=== PATIENT | male | born 1940 | race Caucasian/White ===

== ENCOUNTER → 2017-01-01 | Outpatient (CLI) | payer OTHER | LOC: BHFA 13:30 | PROVIDERS: ATTEND Internal Medicine Cardiovascular Disease | DX: I25.10 Atherosclerotic heart disease of native coronary artery without angina pectoris (principal); E78.5 Hyperlipidemia, unspecified ==

== ENCOUNTER 2017-02-14 09:10 | Day surgery (SDC) | payer OTHER ==
[2017-02-14] MEDS ORDERED: CHLORHEXIDINE GLUC HIBICLENS 118 ML BTL TP ONE (09:51)
[2017-02-14] MEDS ORDERED: BUPIVACAINE 0.25% 30 ML SDV ONE (09:51)
[2017-02-14] MEDS ORDERED: GABAPENTIN 300 MG CAP PO ONE (09:52)
[2017-02-14] MEDS ORDERED: ACETAMINOPHEN 500 MG TAB PO ONE (09:52)
[2017-02-14] MEDS ORDERED: morphINE SR 15 MG TAB PO ONE (09:52)
[2017-02-14] MEDS ORDERED: BACITRACIN 50,000 UNITS/10 ML SYR IRR ONE (09:52)
[2017-02-14] MEDS ORDERED: LR 1,000 ML IV ONE (09:52)
--- NOTE | 2017-02-14 10:04 | PDHPUP ---
History & Physical Update H&P update statement: This history and physical update is based on an assessment of the patient which was completed after admission or registration (within 24 hours), but prior to the surgery/procedure. H&P update: H&P reviewed & patient examined, no change in patient's condition since H&P completed (Consents signed and site marked. Plan for left sided SI joint fusion. All questions answered.)
[2017-02-14] MEDS ORDERED: MIDAZOLAM 2 MG/2 ML VIAL IVP ONE (10:05)
--- NOTE | 2017-02-14 10:05 | PDANEPAE ---
ANE History of Present Illness SI joint pain Left ANE Past Medical History - Cardiovascular History Hx Hypertension: Yes Hx Arrhythmias: No Hx Chest Pain: No Hx Coronary Artery / Peripheral Vascular Disease: Yes Hx CHF / Valvular Disease: No Hx Palpitations: No - Pulmonary History Hx COPD: No Hx Asthma/Reactive Airway Disease: No Hx Recent Upper Respiratory Infection: No Hx Oxygen in Use at Home: No Hx Sleep Apnea: No Sleep Apnea Screening Result - Last Documented: Negative - Neurologic History Hx Cerebrovascular Accident: No Hx Seizures: No Hx Dementia: No - Endocrine History Hx Diabetes: No - Renal History Hx Renal Disorders: No - Liver History Hx Hepatic Disorders: No - Neurological & Psychiatric Hx Hx Neurological and Psychiatric Disorders: No - Cancer History Hx Cancer: No - Congenital Disorder History Hx Congenital Disorders: No - GI History Hx Gastrointestinal Disorders: No - Chronic Pain History Chronic Pain: No (SI JOINT) - Surgical History Prior Surgeries: BILAT SHOULDER REPLACEMENTS 2007,2009 ANE Review of Systems Review of Systems: - Exercise capacity METS (RN): 5 METS ANE Patient History - Allergies Allergies/Adverse Reactions: No Known Allergies Allergy (Verified 02/12/17 16:59) - NPO status NPO Since - Liquids (Date): 02/14/17 NPO Since - Liquids (Time): 08:30 NPO Since - Solids (Date): 02/13/17 NPO Since - Solids (Time): 20:30 - Smoking Hx Smoking Status: Never smoked - Family Anes Hx Family Hx Anesthesia Complications: NONE ANE Labs/Vital Signs - Vital Signs Blood Pressure: 152/90 Heart Rate: 74 Respiratory Rate: 14 Height: 175.26 cm Weight: 88.451 kg ANE Physical Exam - Airway Neck exam: FROM Mallampati Score: Class 1 Mouth exam: normal dental/mouth exam - Pulmonary Pulmonary: no respiratory distress - Cardiovascular Cardiovascular: regular rate and rhythym - ASA Status ASA Status: III ANE Anesthesia Plan Anesthesia Plan: general endotracheal anesthesia
[2017-02-14] MEDS ORDERED: CEFAZOLIN 2 GM/DEXTROSE/100 ML BAG IV ONE (10:07)
[2017-02-14] MEDS ORDERED: DEXAMETHASONE 4 MG/ML VIAL ONE (10:08)
[2017-02-14] MEDS ORDERED: MIDAZOLAM 2 MG/2 ML VIAL ONE (10:08)
[2017-02-14] MEDS ORDERED: ROCURONIUM 50 MG/5 ML VIAL ONE (10:08)
[2017-02-14] MEDS ORDERED: ONDANSETRON 4 MG/2 ML VIAL ONE (10:08)
[2017-02-14] MEDS ORDERED: LIDOCAINE 2% 5 ML SDV ONE (10:08)
[2017-02-14] MEDS ORDERED: PROPOFOL 200 MG/20 ML VIAL ONE (10:08)
[2017-02-14] MEDS ORDERED: fentaNYL 100 MCG/2 ML INJ ONE ×3 (10:08→10:10)
[2017-02-14] MEDS ORDERED: SURGIFLO MATRIX KIT WITH THROMBIN TP ONE (10:38)
[2017-02-14] MEDS ORDERED: PHENYLEPHRINE HCL 100 MCG/ML SYR ONE (10:43)
[2017-02-14] MEDS ORDERED: epHEDrine SULFATE 10 MG/ML SYR ONE ×2 (10:48)
[2017-02-14] MEDS ORDERED: SUGAMMADEX SODIUM 200 MG/2 ML VIAL IVP ONE (11:16)
[2017-02-14] MEDS ORDERED: fentaNYL 100 MCG/2 ML INJ IVP PRN (11:32)
[2017-02-14] MEDS ORDERED: PROMETHAZINE HCL 25 MG/ML INJ IVP PRN (11:32)
[2017-02-14] MEDS ORDERED: HYDROmorphONE/DILAUDID 1 MG/ML INJ IVP PRN (11:32)
[2017-02-14] MEDS ORDERED: NALOXONE HCL 0.4 MG/ML INJ IVP PRN (11:32)
[2017-02-14] MEDS ORDERED: ONDANSETRON 4 MG/2 ML VIAL IVP PRN (11:32)
[2017-02-14] MEDS ORDERED: ALBUTEROL 3 ML DEYVIAL IH PRN (11:32)
[2017-02-14] MEDS ORDERED: ceFAZolin 2 GM/DEXTROSE 100 ML IV ONE (11:49)
--- NOTE | 2017-02-14 11:49 | POSTANESTH ---
Post Anesthetic Evaluation Cardiovascular Status: Normal, Stable Respiratory Status: Normal, Stable Level of Consciousness/Mental Status: Can Participate in Eval Pain Control: Adequate, Prn Tx Ordered Nausea/Vomiting Control: Adequate, Prn Tx Ordered Complications Possibly Related to Anesthesia: None Noted
--- NOTE | 2017-02-14 12:09 | POSTOPPROG ---
Post Op Note Date of Operation: 02/14/17 Surgeon: José Luis Begum Solidworks Drafter: Alvina Naik PA-C Anesthesiologist: Zack Anesthesia: GET(General Endotracheal) Pre-op Diagnosis: left sacroillitis Post-op Diagnosis: same Indication: left SI joint pain and sacroillitis Procedure: left SI joint fusion Findings: Please see dictation Inf/Abcess present in the surg proc area at time of surgery?: No Depth: Organ Space EBL: Minimal Complications: none Specimen(s): none PA Addendum - Addendum .: S: Pt in PACU, denies pain O: AAOx3 NAD VSS MAEx4 Motor 5/5 BUE/BLE left and right buttock incisions cdi dressing in place A: 76 yo M s/p left SI joint fusion P: Pain management advance diet and activity as tolerated DC to home Follow up in 2-3 weeks Call NS with any questions D/w Dr Begum
[2017-02-14 12:52] VITALS: TEMP 97.7
[2017-02-14 13:27] VITALS: BP 129/72; PULSE 68; RESP 13; O2SAT 95
--- NOTE | 2017-02-14 16:46 | GOP ---
[f rep st] OPERATIVE REPORT DATE OF OPERATION: 02/14/2017 SURGEON: José Luis Begum MD SUPPLY CHAIN PROGRAM MANAGER: Khadijah Naik PA-C. ANESTHESIA: General. PREOPERATIVE DIAGNOSIS: 1. Left-sided sacroiliitis. 2. Treatment refractory to nonoperative intervention. POSTOPERATIVE DIAGNOSIS: 1. Left-sided sacroiliitis. 2. Treatment refractory to nonoperative intervention. PROCEDURE PERFORMED: 1. Minimally invasive left-sided sacroiliac joint fusion with 2 Medtronic Ola fusion devices filled with morselized allograft crossing the left SI joint. 2. Use of intraoperative 3D navigation. 3. Use of intraoperative fluoroscopy, less than 1 hour physician time. 4. Use of neuromonitoring. FINDINGS: per imaging SPECIMENS: None. ESTIMATED BLOOD LOSS: 10 mL. INDICATIONS: The patient is a 76-year-old gentleman, who has been undergoing treatment for left-sided sacroiliac joint dysfunction. After failing nonoperative measures, we decided to proceed forth with surgery as described above. DESCRIPTION OF PROCEDURE: Patient was brought to the operating theater and underwent general endotracheal anesthesia without complications. Venodyne's, MK hose, and the appropriate lines were placed by Anesthesia. He was flipped prone onto the Eduardo table and all bony processes inspected and padded. The lower lumbar region, including the pelvis, were prepped and draped in the usual sterile surgical fashion. A time-out was completed per protocol, and the patient received antibiotics within 1 hour of incision. The right-sided posterior superior iliac spine was identified and infiltrated with Marcaine with epinephrine. A small incision was made, and a percutaneous pin for the navigation system placed into the right PSIS. We then brought the 3D Stealth navigation system into the field and completed a 3D Stealth navigation spin. Using 3D Stealth navigation, we placed the orthodontic laboratory technician holes for the 2 sacroiliac joint fusion devices across left SI joint. These holes were drilled and tapped, and we then placed a 12 x 50 mm Ola device across one level and a 12 x 40 mm Ola device across the SI joint using the navigation system. Another 3D Stealth navigation spin demonstrated excellent placement of the hardware. All wounds were then irrigated copiously with bacitracin irrigation and closed in multiple layers using Vicryl sutures for the deep layers and Dermabond for the skin. Patient's wounds were dressed sterilely. He was flipped supine onto the transfer cart, where he was awakened, extubated, and taken to the recovery room in stable condition. There were no complications and no noted changes on neuromonitoring throughout the procedure. COMPLICATIONS: None. /[id number]/MODL MTDD
== END 2017-02-14 14:02 | disposition home or self-care (01) ==
LOC: FSGY 09:10
PROVIDERS: ATTEND Neurological Surgery
DX: M46.1 Sacroiliitis, not elsewhere classified (principal); I10 Essential (primary) hypertension; Z96.611 Presence of right artificial shoulder joint; Z96.612 Presence of left artificial shoulder joint
CPT/HCPCS: C1713; J0171; J0690; J1100; J2250; J2370; J2405; J2704; J3010

== ENCOUNTER 2017-02-22 09:09 | Emergency (ER) | payer OTHER ==
[2017-02-22 09:19] VITALS: BP 121/88; PULSE 63; RESP 18; TEMP 98.4; O2SAT 96
--- NOTE | 2017-02-22 09:48 | EDPHY ---
HPI/HX/ROS/PE/MDM Narrative: CHIEF COMPLAINT: Swelling / redness over surgical site HISTORY OF PRESENT ILLNESS: This patient is a 76 year old male s/p SI joint surgery with Dr. Begum for sacroiliitis on 02/14/17 presenting with redness and swelling to his surgical site. He has had these symptoms for several days. His observed the area this morning, and requested he present for evaluation. He feels well, and reports he is in less pain now that he has been in the last two years. He states Dr. Begum told him to expect a hematoma in the area. He has no further concerns, and states he primarily would like to reassure his that there are no complications. No fever, chills, chest pain, shortness of breath, palpitations, vomiting, diarrhea, urinary complaints, headache, lightheadedness. REVIEW OF SYSTEMS: Aside from elements discussed in the HPI, a comprehensive 10-point review of systems was reviewed and is negative. PAST MEDICAL HISTORY: Bilateral shoulder replacements, Spinal Fusion, CAD with 3 stents SOCIAL HISTORY: . Retired. Lives in [place]. VITAL SIGNS: Reviewed by me GENERAL: Well-developed, well-nourished, resting comfortably in no respiratory distress. HEENT: Benign. LUNGS: Clear to auscultation. CARDIAC: Regular rate and rhythm, no rubs, murmurs or gallops. ABDOMEN: Soft, nontender, nondistended, bowel sounds normal. BACK: Well-healing incision over left SI joint. 6cm x 5cm area of erythema, fluctuance, warmth under the incisional site. No CVA tenderness. EXTREMITIES: No trauma. No edema. Range of motion is normal throughout. NEURO: Alert and oriented, grossly nonfocal. SKIN: Warm and dry, no rash. PSYCHIATRIC: Normal mentation, no agitation. Portions of this note were transcribed by a medical administrative. I personally performed a history, physical exam, medical decision making, and confirmed accuracy of information the transcribed note. ED Course: 76 y/o male s/p SI joint surgery presents with a 6 x 5cm area of erythema, fluctuance, and warmth over his incision site at the left SI joint. No pain, fever, or drainage from the site. 09:[address] Begum, neurosurgeon. Plan for US to evaluate for abscess or other acute processes. 10:10 Performed quick US at bedside, shows small fluid collection. 10:20 Dr Begum at bedside. He examined the patient and viewed the ultrasound as well. We decided to not perform any drainage at this time to limit the risk of introducing infection. Plan for outpatient follow up on Friday as scheduled. Strict return precautions for signs of infection discussed. The patient understands he may also call Dr. Begum's office with any questions or if he needs to be seen sooner next week. The patient is comfortable with this plan. He will be discharged home in good condition. MDM: Diff dx included hematoma, infection, cellulitis, abscess, wound infection, infected hardware. General Time Seen by Provider: 02/22/17 09:36 Initial Vital Signs: Initial Vital Signs Temperature (C) 36.9 C 02/22/17 09:11 Heart Rate 63 02/22/17 09:11 Respiratory Rate 18 02/22/17 09:11 Blood Pressure 121/88 H 02/22/17 09:11 O2 Sat (%) 96 02/22/17 09:11 O2 Delivery Mode Room Air Allergies/Adverse Reactions: No Known Allergies Allergy (Verified 02/22/17 09:11) Home Medications: Medication Instructions Recorded Methocarbamol [Robaxin 750 mg (*)] 750 mg PO QID #60 tab 02/14/17 oxyCODONE IR [Oxycodone Ir (*)] 5 mg PO Q4 #90 tab 02/14/17 Cephalexin [Keflex (RX)] 500 mg PO QID 7 Days cap 02/22/17 Departure - Departure Disposition: Home, Routine, Self-Care Clinical Impression: Hematoma, Possible early incision infection Condition: Good Instructions: Hematoma (ED) Additional Instructions: 1. Follow up with Dr. Begum as scheduled on Friday 2. Take your Keflex as prescribed. 3. Return to the emergency department immediately if you develop pain, increased redness, swelling, or warmth, drainage from the incision site, or if you develop fever, vomiting, or any other worsening of condition or concerns. Referrals: FELIBERTO HASSAN [Other] - As per Instructions José Luis Begum MD [Medical Doctor] - As per Instructions Prescriptions: Cephalexin [Keflex (RX)] 500 mg PO QID 7 Days cap Report Scribed for: Anyi M Feldhaus Report Scribed by: Margarita James Date of Report: 02/22/17 Time of Report: 09:53
--- NOTE | 2017-02-22 12:20 | GCON ---
[f rep st] CONSULTATION ER CONSULTATION DATE OF CONSULTATION: 02/22/2017 REASON FOR CONSULTATION: Wound infection versus hematoma. HISTORY OF PRESENT ILLNESS: The patient is a 76-year-old gentleman who underwent a left-sided sacroiliac joint fusion by myself at [facility] on the January, for sacroiliitis. The patient was discharged home and was scheduled to follow up as an outpatient. However, his noted that he had some increased swelling around his SI joint incision. The patient denies any fevers or chills. Presents to the emergency department for evaluation and management upon encouragement of his . At this point, the patient states he feels excellent with no pain. He feels better than he had preoperatively. There is no pain at the surgical incision site. He has no new neurological deficits. No fevers, chills, chest pain, shortness of breath, palpations, vomiting, diarrhea, urinary complaints, headache, or lightheadedness. REVIEW OF SYSTEMS: Complete 10-point review of systems from the patient's intake form were reviewed myself. Significant only for those as noted above in the HPI. PAST MEDICAL HISTORY: 1. Bilateral shoulder replacement. 2. History of spinal fusion. 3. Coronary artery disease with 3 stents. SOCIAL HISTORY: The patient is and retired. He lives in [place]. No current tobacco use. He is a former smoker and quit 10 years ago. There is positive alcohol use as well. FAMILY HISTORY: Noncontributory for any aneurysms. ALLERGIES: No known drug allergies. HOME MEDICATIONS: 1. Robaxin 750 mg p.o. q.i.d. p.r.n. 2. Oxycodone 5 mg p.o. q.4 hours p.r.n. PHYSICAL EXAMINATION: VITAL SIGNS: Blood pressure 122/68, heart rate 63, respiratory rate is 18, saturating 96% on room air, temperature is 36.1. GENERAL : The patient is sitting in the gurney in no acute distress. He is quite pleasant and cooperative with examination. HEENT: Head is atraumatic, normocephalic. NEUROLOGIC: Speech is fluent. Face is symmetric. Motor exam is 5/5 strength with bilateral corporate securities research analyst strength, biceps, triceps. Sensory exam is intact sensation throughout dermatomes of the bilateral upper and lower extremities. SURGICAL INCISIONS: Patient's left-sided sacroiliac joint incision is somewhat raised and firm but no fluctuance noted underneath. There is a small amount of erythema around the incision site itself. Other incision over the right PSI appears to be well healed. IMAGING: Ultrasound was completed by Dr. Galvez who noticed a very small fluid pocket within this area. ASSESSMENT AND PLAN: The patient is a 76-year-old gentleman who is status post left-sided sacroiliac joint fusion by myself on the January. The patient is doing excellent with reduced pain from his preoperative status. He presents to the emergency department upon the behest of his who noticed some increased erythema and firmness noted in his left sacroiliac joint fusion site. The patient was placed on anticoagulation immediately after surgery because of his history of coronary artery stents. It appears to be that this is a hematoma more so than an infection, given the fact that the patient is afebrile and has no fevers or chills the mass lesion appears to be more firm than fluctuant to my examination. The potential treatment options were to place a needle into the lesion and aspirate for possible hematoma versus infectious cultures. Given the fact the patient is feeling excellent, I do not want to risk potentially introducing infection to noninfected site. We will plan to see the patient back in our clinic in approximately 5 days and put him on prophylactic Keflex in the meantime. He will call our office if he develops any new symptoms or concerns. I discussed this with the patient extensively and he is in agreement with this treatment plan. He will be discharged from the emergency department today. /[id number]/MODL MTDD
== END 2017-02-22 10:36 | disposition home or self-care (01) ==
DX: L76.22 Postprocedural hemorrhage of skin and subcutaneous tissue following other procedure (principal); I25.10 Atherosclerotic heart disease of native coronary artery without angina pectoris; Z95.5 Presence of coronary angioplasty implant and graft; Y82.8 Other medical devices associated with adverse incidents